=== PATIENT | female | born 1985 | race Asian ===

== ENCOUNTER 2021-11-26 14:16 | Emergency (ER) | payer SELFPAY ==
--- NOTE | 2021-11-26 14:40 | NUR ---
Pt stated she just realized her ER co-pay is too much and she will go to an urgent care instead. ER admitting notified. Pt was not seen.
== END 2021-11-26 14:47 | disposition left against medical advice (07) ==
LOC: ER 14:16
DX: Z53.21 Procedure and treatment not carried out due to patient leaving prior to being seen by health care provider (principal)